=== PATIENT | male | born 1940 | race Caucasian/White ===

== ENCOUNTER → 2016-07-24 | Outpatient (CLI) | payer MEDICARE, OTHER ==
[~2016-07-24] MED LIST: ABAT250V IV; DICL75TA2 PO; FOLI-17 PO; HYDR-3241 PO; LISI1TAB7 PO; METH2.5T PO; METH4TAB6 PO; PANT40TA3 PO
== END | disposition home or self-care (01) ==
LOC: CFH 12:59
PROVIDERS: ATTEND Internal Medicine
DX: R91.8 Other nonspecific abnormal finding of lung field (principal); J43.9 Emphysema, unspecified; M85.89 Other specified disorders of bone density and structure, multiple sites
CPT/HCPCS: 71250